=== PATIENT | male | born 1995 | race Caucasian/White ===

== ENCOUNTER → 2020-08-16 08:05 | Outpatient (BNVA) | payer OTHER, SELFPAY | PROVIDERS: Family Provider Nurse Practitioner; Visit Provider Family Medicine Adult Medicine | DX: M79.641 Pain in right hand (principal) | CPT/HCPCS: 73130 ==

== ENCOUNTER 2023-09-09 23:38 | Observation (INO) | payer OTHER, SELFPAY ==
--- NOTE | 2023-09-09 23:44 | ECG_ITS ---
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 [id number]
[2023-09-09 23:46] VITALS: BP 152/111; PULSE 107; RESP 17; TEMP 36.4; O2SAT 100; BMI 24.4
[2023-09-10] VITALS (10 sets, daily range): BP systolic 119–147; BP diastolic 66–91; PULSE 71–118; RESP 14–16; TEMP 36.7; O2SAT 96–98; BMI 24.8
[2023-09-10 00:13] LABS: Basophils % 0.4 %; Eosinophils # 0.2 10^3/uL (0.0-0.8); Eosinophils % 4.6 %; Hematocrit 47.2 % (37-53); Lymphocytes # 2.1 10^3/uL (0.8-4.8); Mean Corpuscular HGB Conc 34.5 g/dL (30-55); Mean Corpuscular Hemoglobin 29.9 pg (27-33); Mean Corpuscular Volume 86.4 fl (82-101); Mean Platelet Volume 10.1 fL (7.4-10.4); Monocytes # 0.6 10^3/uL (0.2-0.9); Monocytes % 11.8 %; Neutrophils # 2.05 10^3/uL (1.8-7.7); Nucleated Red Blood Cells % 0 %; Platelet Count 242 10^3/cmm (157-399); Red Blood Count 5.46 10^6/uL (3.85-5.65); Red Cell Distribution Width 12.1 % (12.1-15.1)
[2023-09-10 00:36] LABS: Alanine Aminotransferase 15 U/L (0-41); Albumin Level 4.4 g/dL (3.5-5.2); Alkaline Phosphatase 61 U/L (40-130); Anion Gap 14.8 (5-19); Aspartate Amino Transferase 18 U/L (0-40); Blood Urea Nitrogen 13 mg/dL (6-20); Calcium 9.6 mg/dL (8.5-10.5); Carbon Dioxide 26 mmol/L (22-29); Chloride 104 mmol/L (98-107); Globulin 3.1 g/dL (1.3-4.6); Glomerular Filtration Rate 99.8 mL/min (90-130); Glucose 103 mg/dL (65-115); Osmolality Calculated 292 mOsm/kg (285-295); Potassium 3.8 mmol/L (3.5-5.1); Sodium 141 mmol/L (136-145); Total Bilirubin 0.5 mg/dL (0.15-1.2); Total Protein 7.5 g/dL (6.6-8.7)
--- NOTE | 2023-09-10 00:55 | W.ED.ARRPALP ---
HPI - Arrhythmia/Palpitations General: Chief Complaint: Arrhythmia/Palpitations Stated Complaint: Heart jumping out of chest sob Time Seen by Provider: 09/09/23 23:46 History of Present Illness: 28-year-old male presents emerged department stating that he started feeling like his heart was beating out of his chest. He states he had a history of atrial fibrillation when he was 15 years old and they told him he would grow out of it not to worry about it. He states he is not taking any medication for this. He states that his heart will intermittently feel like it is beating very fast but over the previous 1 week has continued to worsen. He states tonight when he was laying down in the bed his heart started going extremely fast at which time he checked his pulse and it felt like it was going about 170 or 180. He states he did feel slightly nauseated and short of breath with this episode of feeling like his heart was beating fast. He states he will get intermittently dizzy but was not dizzy tonight. Associated symptoms: Reports nausea Review of Systems General: Reports: 10 or more systems reviewed and unremarkable except in HPI and below Card: Reports: palpitations and irregular heart rhythm GI: Reports: nausea [facility] ED PFSH: Medical History A-fib Surgical History No significant past surgical history Social History Smoking and tobacco/nicotine status: former use of tobacco/nicotine Physical Exam Narrative: EXAM NARRATIVE: Constitutional: the patient appears well nourished and with normal development. Vital signs reviewed as documented. HENMT: Normocephalic, atraumatic. Extermal ears with normal appearance without drainage. Nose without drainage, normal appearance. Mucus membranes moist. Neck is supple, No jugular venous distension, trachea is midline, no appreciable carotid bruits. No lymphadenopathy. No meningeal signs. Flexion, extension and lateral rotation is without pain. Eyes: Pupils are equal, round, reactive to light and accommodation. No scleral icterus. Extra-ocular movement are intact. Thorax is symmetrical and with equal rise and fall with respirations. Resp: Lungs are clear to auscultation. No wheezes, rales, crackles or ronchi at present. Cardio: Irregularly irregular consistent with atrial fibrillation with a ventricular rate of approximately 153.. Positive S1, S2. No appreciable murmurs, rubs or gallops. GI: Abdominal exam reveals normal bowel sounds to all quadrants. No organomegaly. No obvious palpable masses noted. No hepatomegally appreciated. Soft, nontender to palpation. Extremity: Extremities are non-edematous and both femoral and pedal pulses are 2+ and equal bilaterally. Moves all extremities well, sensation in all extremities. Neuro: Alert and oriented x4, person, place, time and situation. Cranial nerves II through XII are grossly intact, there is no focal neurological deficits that I can appreciate at present. Motor strength in the upper and lower extremities are equal and bilateral 5/5. Psych: Cooperative, calm, normal thought process, appropriate judgment. Skin: No lesions, rashes. No gross abnormalities noted. Back: Symmetrical, no obvious deformity, No CVA tenderness Course Vital Signs: Vital signs: Vital Signs Temperature 98.1 F 09/10/23 04:09 Pulse Rate 71 09/10/23 14:32 Respiratory Rate 14 09/10/23 14:32 Blood Pressure 125/85 09/10/23 14:32 Pulse Oximetry 98 09/10/23 14:32 Oxygen Delivery Me thod Room Air 09/10/23 11:13 MDM - Arrhythmia/Palpitations Medical Decision Making Physical exam completed and documented, I will obtain serial cardiac enzymes, serial twelve-lead EKGs, chest x-ray, CBC, CMP, urinalysis, B-type natriuretic peptide, PT/PTT/INR, and a chest x-ray. I provide calcium channel yohan IV push as well as a calcium channel yohan drip-diltiazem. I I have reviewed any pervious and pertinent medical records for assist in obtaining beneficial medical information to improved the care and treatment of the patient. I will contact the hospitalist for admission of the patient and suspect the hospitalist will consult cardiology for additional evaluation treatment and care. Medical Records I reviewed the patient's medical records. Lab Data I reviewed the patient's lab results. 09/09/23 23:59 09/09/23 23:59 Radiology Impressions Chest X-Ray 09/10/23 01:53 IMPRESSION: No acute findings. Laboratory Results WBC 5.00 10^3/uL (3.29-11.43) 12/13/23 23:59 RBC 5.46 10^6/uL (3.85-5.65) 09/09/23 23:59 Hgb 16.30 g/dL (11.27-16.99) 09/09/23 23:59 Hct 47.2 % (37-53) 09/09/23 23:59 MCV 86.4 fl (82-101) 09/09/23 23:59 MCH 29.9 pg (27-33) 09/09/23 23:59 MCHC 34.5 g/dL (30-55) 09/09/23 23:59 RDW 12.1 % (12.1-15.1) 09/09/23 23:59 Plt Count 242 10^3/cmm (157-399) 09/09/23 23:59 MPV 10.1 fL (7.4-10.4) 09/09/23 23:59 Neut % (Auto) 41.0 % 09/09/23 23:59 Lymph % (Auto) 42.0 % 09/09/23 23:59 Wetzel % (Auto) 11.8 % 09/09/23 23:59 Eos % (Auto) 4.6 % 09/09/23 23:59 Baso % (Auto) 0.4 % 09/09/23 23:59 Neut # (Auto) 2.05 10^3/uL (1.8-7.7) 09/09/23 23:59 Lymph # (Auto) 2.1 10^3/uL (0.8-4.8) 09/09/23 23:59 Wetzel # (Auto) 0.6 10^3/uL (0.2-0.9) 09/09/23 23:59 Eos # (Auto) 0.2 10^3/uL (0.0-0.8) 09/09/23 23:59 Baso # (Auto) 0.0 10^3/uL (0.0-0.1) 09/09/23 23:59 Nucleated RBC % (auto) 0 % 09/09/23 23:59 Nucleated RBCs # 0.0 /100WBC 09/09/23 23:59 Sodium 141 mmol/L (136-145) 09/09/23 23:59 Potassium 3.8 mmol/L (3.5-5.1) 09/09/23 23:59 Chloride 104 mmol/L (98-107) 09/09/23 23:59 Carbon Dioxide 26 mmol/L (22-29) 09/09/23 23:59 Anion Gap 14.8 (5-19) 09/09/23 23:59 BUN 13 mg/dL (6-20) 09/09/23 23:59 Creatinine 0.9 mg/dL (0.7-1.2) 09/09/23 23:59 GFR Calculation 99.8 mL/min (90-130) 09/09/23 23:59 Glucose 103 mg/dL (65-115) 09/09/23 23:59 Calculated Osmolality 292 mOsm/kg (285-295) 09/09/23 23:59 Calcium 9.6 mg/dL (8.5-10.5) 09/09/23 23:59 Total Bilirubin 0.5 mg/dL (0.15-1.2) 09/09/23 23:59 AST 18 U/L (0-40) 09/09/23 23:59 ALT 15 U/L (0-41) 09/09/23 23:59 Alkaline Phosphatase 61 U/L (40-130) 09/09/23 23:59 Troponin T Baseline < 6 ng/L (0-15) 09/09/23 00:00 Total Protein 7.5 g/dL (6.6-8.7) 09/09/23 23:59 Albumin 4.4 g/dL (3.5-5.2) 09/09/23 23:59 Globulin 3.1 g/dL (1.3-4.6) 09/09/23 23:59 Urine Opiates Screen Negative ng/mL (Negative) 09/10/23 01:29 Ur Barbiturates Screen Negative ng/mL (Negative) 09/10/23 01:29 Ur Phencyclidine Scrn Negative ng/mL (Negative) 09/10/23 01:29 Ur Amphetamines Screen Negative ng/mL (Negative) 09/10/23 01:29 U Benzodiazepines Scrn Negative ng/mL (Negative) 09/10/23 01:29 Urine Cocaine Screen Negative ng/mL (Negative) 09/10/23 01:29 U Marijuana (THC) Screen Negative ng/mL (Negative) 09/10/23 01:29 All radiology interpretation(s) finalized by discharge Discharge Plan Discharge Patient Disposition: Admitted As Inpatient Admit Provider: Mona Ni Clinical Impression: Atrial fibrillation with rapid ventricular response Condition: Stable Discharge Diet: Usual diet Discharge Activity: Resume usual activity and Increase activity as tolerated Coding Level of Care Code ED Cycle Touring Guide for Tasia Pena
[2023-09-10] MEDS: dilTIAZem 5 mg/mL SDV 5 mL 10 MG IVP (01:02)
[2023-09-10 01:23] LABS: Troponin(5th) Baseline < 6 ng/L (0-15)
[2023-09-10] MEDS: dilTIAZem 100 MG in sodium chloride 0.9% (add-van) 100 ML IV (01:32)
--- NOTE | 2023-09-10 01:53 | XRR_ITS ---
PROCEDURE INFORMATION: Exam: XR Chest Exam date and time: 09/10/2023 1:56 AM Age: 28 years old Clinical indication: Other: Palpitations TECHNIQUE: Imaging protocol: Radiologic exam of the chest. Views: 2 views. COMPARISON: No relevant prior studies available. FINDINGS: Lungs: Unremarkable. No consolidation. Pleural spaces: Unremarkable. No pleural effusion. No pneumothorax. Heart/Mediastinum: Unremarkable. No cardiomegaly. Bones/joints: Unremarkable. XR/XR chest 2V* [id number] IMPRESSION: No acute findings.
[2023-09-10 02:04] LABS: Amphetamines Screen Urine Negative (Negative); Barbiturates Screen Urine Negative (Negative); Benzodiazepines Screen Urine Negative (Negative); Cocaine Screen Urine Negative (Negative); Opiate Screen Urine Negative (Negative); PCP Screen Urine Negative (Negative); THC Screen Urine Negative (Negative)
[2023-09-10 02:52] LABS: Troponin 5 2HR < 6.0 ng/L (0-15); Troponin 5 2HR Delta 0 ABS# (0-10)
--- NOTE | 2023-09-10 03:09 | ECG_ITS ---
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 [id number]
--- NOTE | 2023-09-10 06:04 | P.HP_ITS ---
Providers/Chief Complaint 2 Admitting Physician: Mona Ni MD Chief Complaint: Heart jumping out of chest sob History of Present Illness Clayton Emerson is a 28 year old male presented to hospital with chief complaint of palpitations. Patient is stating that after supper he went to throw some leftover in the garbage, started experiencing racing of heart, normally he breathes out of it at this time atorvastatin persistent, when he laid down in his bed his palpitations were making him uncomfortable that prompted his visit to the ER. Patient is stating that he was sent to the [facility] when he was 15 years old he was in A-fib at that time, he is not sure about the medical term but stating that they told him that his aortic valve was not opening well, he never required cardioversion because as soon as he arrived to the hospital he converted to sinus rhythm. He does not use any AV delmi blocking agent, patient stating that he got clearance to participate in sports as well and he played football. He is not endorsing recent use of marijuana or methamphetamine. 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 He is denying chest pain, shortness of breath, fever. Review of Systems 2 Const: Denies: fever(s) Eyes: Denies: change in vision ENMT: Denies: throat pain Card: Reports: palpitations; Denies: chest pain Resp: Denies: dyspnea GI: Denies: abdominal pain : Denies: flank pain Musc: Denies: neck pain Skin/Breast: Denies: rash Neuro: Denies: headache(s) Psych: Reports: anxiety Endo: Denies: polyuria Medications/Allergies Home Medications Medication Instructions Recorded Confirmed Last Taken Type ibuprofen 200 mg tablet 200 mg PO PRN PRN Headache 09/10/23 09/10/23 Unknown History Allergies Allergy/AdvReac Type Severity Reaction Status Date / Time No Known Allergies Allergy Verified 10/22/20 15:39 PFSH Acute 2 PFSH: Medical History A-fib Surgical History No significant past surgical history Social History Smoking and tobacco/nicotine status: former use of tobacco/nicotine Vitals/I&O/Wt Last Vital Signs Temp 98.1 F 09/10/23 04:09 Pulse 93 09/10/23 05:56 Resp 14 09/10/23 04:09 BP 121/66 09/10/23 04:09 Pulse Ox 96 09/10/23 04:09 O2 Del Method Room Air 09/10/23 02:15 09/09/23 09/09/23 09/10/23 14:59 22:59 06:59 Intake Total 241.417 / 241.417 Balance 241.417 / 241.417 Weight last 48 hrs Weight 85.531 kg Weight 85.531 kg Weight 83.915 kg Physical Exam 2 Narrative: Young male Heart rate fluctuating between 80-1 30, A-fib RVR No active chest pain GCS 15 Nonfocal neuroexam S1, S2 Pleasant cooperative Doing well on room air Data 09/09/23 23:59 09/09/23 23:59 A&P Assessment and plan (1) Atrial fibrillation with rapid ventricular response: Plan Paroxysmal A-fib with RVR [id number] score: 0 Currently on Cardizem drip at 10, I have asked nurse to increase the Cardizem drip rate to 15 Requested TSH, free T4, Drug screen is unremarkable Patient is getting echo at this point He might need cardioversion if he stays in this rhythm Will consult cardiology I will keep patient n.p.o. in case he would require cardioversion later today Will request records from [facility] Full code N.p.o. Chart review: In the ER his potassium was below 4 I requested mag level, hemoglobin A1c is 4.9, D-dimer is remarkable for his age 1 without significant elevation TSH is pending Spoke with Dr. Kirk Self interpretation of EKG: Showing A-fib rhythm Spoke with his mom, she is not sure about the medical term for his aortic valve, she is stating that there was a long time ago, she is not able to recall. Attestations 2 Medical Necessity Statement*: Considering persistent A-fib rhythm patient will need more than 2 midnights for management evaluation, considering his young age he should not be in this rhythm, he will need cardioversion and closer monitoring Diagnoses Atrial fibrillation with rapid ventricular response I48.91
--- NOTE | 2023-09-10 06:06 | USCV_ITS ---
Clayton Emerson Age: 28 Gender: M : 1995 Exam Date: 09/10/2023 06:31 Ordering Phys: Mona Ni MD Technologist: JON Exam Location: [facility] Indication: A FIB BP: 110 / 76 HR: 90 Rhythm: Atrial fibrillation Technical Quality: Adequate MEASUREMENTS (Male / Female) Normal Values 2D ECHO LVOT Diameter 2.0 cm LV Ejection Fraction MOD 2C 67.4 % LV Ejection Fraction 2C AL 69.2 % LA Diameter 2.3 cm LA Width 2.8 cm LA Height 4.0 cm RA Width 3.4 cm RA Height 4.6 cm Aorta at Sinotubular Diameter 2.8 cm IVC Diameter 2.0 cm M-MODE Aortic Annulus Diameter 2.9 cm LA Ao Ratio MM 0.8 MV E Point Septal Separation 0.4 cm DOPPLER AV Peak Velocity 134.0 cm/s LVOT Peak Velocity 95.0 cm/s AV Area Cont Eq vti 2.9 cm squared AV Area Cont Eq pk 2.3 cm squared MV Peak Velocity 99.0 cm/s MV Area PHT 3.2 cm squared MV E' Velocity 51.5 cm/s Mitral E to MV E' Ratio 5.3 Mitral E to LV E' Lateral Ratio 4.5 Mitral E to LV E' Septal Ratio 6.5 TR Peak Velocity 133.2 cm/s TR Peak Gradient 7.1 mmHg TR Mean Velocity 111.1 cm/s TR Mean Gradient 5.0 mmHg TR Velocity Time Integral 25.9 cm TV Peak E Velocity 48.0 cm/s Right Atrial Pressure 3.0 mmHg Pulmonary Artery Systolic Pressu 10.1 mmHg PV Peak Velocity 127.0 cm/s RV Acceleration Time 0.1 s RV Ejection Time 0.3 s RV AcT/ET 0.5 FINDINGS Left Ventricle Normal left ventricular size, systolic function and wall thickness, with no regional wall motion abnormalities. Left ventricular ejection fraction is estimated at 65 %. Rhythm precludes evaluation of diastolic function. Right Ventricle Normal right ventricular size and systolic function. Right ventricular systolic pressure 10.1 mmHg. Right Atrium Normal right atrial size. Left Atrium Normal left atrial size. Mitral Valve Structurally normal mitral valve. No mitral valve stenosis. Trace to mild mitral valve regurgitation. Aortic Valve Structurally normal trileaflet aortic valve. No aortic valve stenosis. No aortic valve regurgitation. Tricuspid Valve Structurally normal tricuspid valve. No tricuspid valve stenosis. Trace tricuspid valve regurgitation. Pulmonic Valve Structurally normal pulmonic valve. No pulmonary valve stenosis. Trace pulmonary valve regurgitation. Pericardium No pericardial effusion. Aorta Normal size aortic root and proximal ascending aorta. IVC Normal IVC dimension with >50% respiratory change of the inferior vena cava. CONCLUSIONS 1. Normal left ventricular size, systolic function and wall thickness, with no regional wall motion abnormalities. Left ventricular ejection fraction is estimated at 65 %. 2. Trace to mild mitral valve regurgitation. 3. Normal pulmonary artery pressure. 4. No prior similar studies to compare. Jen Rascon MD (Electronically Signed) Final Date: 10 September 2023 12:35 S
[2023-09-10 06:27] LABS: D Dimer <= 0.27 ug/mLFEU (0-0.59)
[2023-09-10 06:35] LABS: Estmated Average Glucose 94; Hemoglobin A1C 4.9 % (4.0-6.0)
--- NOTE | 2023-09-10 06:51 | PC.NURSE ---
Dr Ni requested cardizem gtt be turned up to 15.
[2023-09-10 06:54] LABS: Free T4 Free Thyroxine 1.33 ng/dL (0.82-1.77); Thyroid Stimulating Hormone 1.02 uIU/mL (0.27-4.20)
[2023-09-10] MEDS: potassium chloride ER 20 mEq Tablet 40 MEQ PO (06:56)
[2023-09-10 06:59] LABS: Troponin 5 6HR < 6.0 ng/L (0-15); Troponin 5 6HR Delta 0 ng/L (0-12)
--- NOTE | 2023-09-10 08:08 | P.CONIM_ITS ---
Providers/Reason For Consult 2 Consulting Physician/Specialty*: Cardiovascular medicine Reason for Consult*: Atrial fibrillation Requesting Physician: Hospitalist Attending Physician: Mona Ni MD History of Present Illness History of Present Illness Clayton Emerson is a 28 year old male with no known cardiac history. He says that he was 15 years old and had an episode of atrial fibrillation. He went to [place] but apparently converted on his own. He does not remember much about this. He also states that he had something wrong with one of his valves. He has never had a cardioversion, never been on any medication and has never had any cardiac surgery. When he was 15 they cleared him to play sports which he played throughout his high school days. He has not had any other trouble. Last night after dinner he went to take something to the garbage. He noticed an irregular fast heartbeat. He tried to take deep breaths and do other things to make it go away which it would not. He then laid down to go to bed and noticed that it was still irregular so he came into the emergency room. He was in atrial fibrillation with a rapid ventricular response. He has been placed on Cardizem which has reduced his heart rate down into the high 90s and low 100s. He is otherwise well. He takes no medications. He denies the use of any illicit substances. 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 Review of Systems 2 Narrative: Review of systems is negative Medications/Allergies Home Medications Medication Instructions Recorded Confirmed Last Taken Type ibuprofen 200 mg tablet 200 mg PO PRN PRN Headache 09/10/23 09/10/23 Unknown History Allergies Allergy/AdvReac Type Severity Reaction Status Date / Time No Known Allergies Allergy Verified 10/22/20 15:39 Current Medications Generic Name Dose Route Start Last Admin Trade Name Freq PRN Reason Stop Dose Admin Diltiazem HCl 100 mg/ Sodium 100 mls @ 0 mls/hr 09/10/23 01:00 09/10/23 06:57 Chloride IV 15 mg/hr .Q0M JACQUELINE 15 mls/hr Titration Protocol Per Protocol PFSH Acute 2 PFSH: Medical History A-fib Surgical History No significant past surgical history Social History Smoking and tobacco/nicotine status: former use of tobacco/nicotine Vitals/I&O/Wt Last Vital Signs Temp 98.1 F 09/10/23 04:09 Pulse 102 H 09/10/23 07:21 Resp 16 09/10/23 07:21 BP 119/71 09/10/23 07:21 Pulse Ox 97 09/10/23 07:21 O2 Del Method Room Air 09/10/23 07:21 09/09/23 09/10/23 09/10/23 22:59 06:59 14:59 Intake Total 292.750 / 292.750 Balance 292.750 / 292.750 Weight last 48 hrs Weight 188 lb 9 oz Weight 188 lb 9 oz Weight 185 lb Physical Exam 2 Narrative: GENERAL: In general he is comfortable HEENT: Exam within normal limits. NECK: Supple without jugular vein distention. The carotid upstroke is normal without bruits. BACK: Exam normal. LUNGS: Clear. HEART: Irregular rate and rhythm ABDOMEN: Benign without organomegaly or tenderness. EXTREMITIES: No edema. NEUROLOGIC: Exam normal. SKIN: Unremarkable. Data 09/09/23 23:59 09/09/23 23:59 A&P Assessment and plan (1) Atrial fibrillation with rapid ventricular response: Plan Apparently an echo is pending. I will give him 450 mg of Rythmol to see if that we will convert him. If it does not he should be cardioverted sooner rather than later. He has been in atrial fibrillation about 12 hours so we still have time before we need to anticoagulate him. and Low Time for a total of Total time in patient care (in minutes): 30 minutes, includes reviewing past or interval history, examining/interviewing patient, placing orders, counseling patient/family/other support, updating patient/family/other support, discussing plan of care with staff, documenting encounter and coordinating care Diagnoses Atrial fibrillation with rapid ventricular response I48.91
[2023-09-10] MEDS: metoprolol tartrate 25 mg Tablet 12.5 MG PO (09:02)
--- NOTE | 2023-09-10 09:46 | P.DS_ITS ---
Discharge Providers Date of Admission: 09/10/23 01:53 Date of Discharge: September 10, 2023 Attending Provider at Admission: Mona Ni MD Attending Provider at Discharge: Orville Ramirez MD Consults: Cardiology: Dr. Kirk Diagnoses at Discharge Discharge Diagnosis (1) Atrial fibrillation with rapid ventricular response: Status: Acute Reason for Visit Reason for Visit: Heart jumping out of chest sob Hospital Course Hospital Course Clayton Emerson is a 28 year old male with no known cardiac history. He says that he was 15 years old and had an episode of atrial fibrillation. He went to [facility] but apparently converted on his own. He does not remember much about this. He also states that he had something wrong with one of his valves. He has never had a cardioversion, never been on any medication and has never had any cardiac surgery. When he was 15 they cleared him to play sports which he played throughout his high school days. He has not had any other trouble. Last night after dinner he went to take something to the garbage. He noticed an irregular fast heartbeat. He tried to take deep breaths and do other things to make it go away which it would not. He then laid down to go to bed and noticed that it was still irregular so he came into the emergency room. He was in atrial fibrillation with a rapid ventricular response. He has been placed on Cardizem which has reduced his heart rate down into the high 90s and low 100s. He is otherwise well. He takes no medications. He denies the use of any illicit substances. 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 Cardiology was consulted. Patient was to be given propafenone. Shortly before getting propafenone, the patient had a bowel movement, beared down and converted to sinus rhythm on his own. Patient remained in sinus rhythm both at rest and ambulation after the event. Echocardiogram was done which showed a normal EF of 65%, trace to mild MR, normal PA pressures. He has been discharged hemodynamic stable condition on oral low-dose metoprolol and baby aspirin. He is to follow-up with cardiology within next 1 month. New appointment has been made with the PCP. Physical Exam Narrative: General: No acute distress, AO x3 HEENT: PERRLA, pupils bilaterally equal and reactive Chest: Normal vesicular breath sounds, no added sounds, equal good air entry bilaterally CVS: S1-S2 regular, no murmurs, no tachycardia, no gallops, no rubs Abdomen: Soft, nontender, no organomegaly, bowel sounds present Neuro: No focal deficits, no facial deformity, AO x3, power 5/5 in all limbs Discharge Data Studies Completed and Pending Completed Studies During Hospitalization Category Date Time Status XR chest 2V* [id number] Stat Exams 09/10/23 01:53 Completed Pending at discharge Category Date Time Status Complete Blood Count w/Auto AM LABS Lab 09/11/23 04:00 Ordered Comprehensive Metabolic Panel AM LABS Lab 09/11/23 04:00 Ordered Magnesium AM LABS Lab 09/11/23 04:00 Ordered PHOS [Phosphorus] AM LABS Lab 09/11/23 04:00 Ordered CV. echo complete* [id number] Routine Ultrasound 09/10/23 06:06 Taken Radiology Impressions Chest X-Ray 09/10/23 01:53 IMPRESSION: No acute findings. Echocardiogram: CONCLUSIONS 1. Normal left ventricular size, systolic function and wall thickness, with no regional wall motion abnormalities. Left ventricular ejection fraction is estimated at 65 %. 2. Trace to mild mitral valve regurgitation. 3. Normal pulmonary artery pressure. 4. No prior similar studies to compare. Jen Rascon MD (Electronically Signed) Final Date: 10 September 2023 Laboratory Results WBC 5.00 10^3/uL (3.29-11.43) 09/09/23 23:59 RBC 5.46 10^6/uL (3.85-5.65) 09/09/23 23:59 Hgb 16.30 g/dL (11.27-16.99) 09/09/23 23:59 Hct 47.2 % (37-53) 09/09/23 23:59 MCV 86.4 fl (82-101) 09/09/23 23:59 MCH 29.9 pg (27-33) 09/09/23 23:59 MCHC 34.5 g/dL (30-55) 09/09/23 23:59 RDW 12.1 % (12.1-15.1) 09/09/23 23:59 Plt Count 242 10^3/cmm (157-399) 09/09/23 23:59 MPV 10.1 fL (7.4-10.4) 09/09/23 23:59 Neut % (Auto) 41.0 % 09/09/23 23:59 Lymph % (Auto) 42.0 % 09/09/23 23:59 Dodge % (Auto) 11.8 % 09/09/23 23:59 Eos % (Auto) 4.6 % 09/09/23 23:59 Baso % (Auto) 0.4 % 09/09/23 23:59 Neut # (Auto) 2.05 10^3/uL (1.8-7.7) 09/09/23 23:59 Lymph # (Auto) 2.1 10^3/uL (0.8-4.8) 09/09/23 23:59 Dodge # (Auto) 0.6 10^3/uL (0.2-0.9) 09/09/23 23:59 Eos # (Auto) 0.2 10^3/uL (0.0-0.8) 09/09/23 23:59 Baso # (Auto) 0.0 10^3/uL (0.0-0.1) 09/09/23 23:59 Nucleated RBC % (auto) 0 % 09/09/23 23:59 Nucleated RBCs # 0.0 /100WBC 09/09/23 23:59 D-Dimer <= 0.27 ug/mLFEU (0-0.59) 09/10/23 05:56 Sodium 141 mmol/L (136-145) 09/09/23 23:59 Potassium 3.8 mmol/L (3.5-5.1) 09/09/23 23:59 Chloride 104 mmol/L (98-107) 09/09/23 23:59 Carbon Dioxide 26 mmol/L (22-29) 09/09/23 23:59 Anion Gap 14.8 (5-19) 09/09/23 23:59 BUN 13 mg/dL (6-20) 09/09/23 23:59 Creatinine 0.9 mg/dL (0.7-1.2) 09/09/23 23:59 GFR Calculation 99.8 mL/min (90-130) 09/09/23 23:59 Glucose 103 mg/dL (65-115) 09/09/23 23:59 Estimat Average Glucose 94 09/10/23 05:56 Hemoglobin A1c 4.9 % (4.0-6.0) 09/10/23 05:56 Calculated Osmolality 292 mOsm/kg (285-295) 09/09/23 23:59 Calcium 9.6 mg/dL (8.5-10.5) 09/09/23 23:59 Total Bilirubin 0.5 mg/dL (0.15-1.2) 09/09/23 23:59 AST 18 U/L (0-40) 09/09/23 23:59 ALT 15 U/L (0-41) 09/09/23 23:59 Alkaline Phosphatase 61 U/L (40-130) 09/09/23 23:59 Troponin T Baseline < 6 ng/L (0-15) 09/09/23 00:00 Troponin T 120 Minute < 6.0 ng/L (0-15) 09/10/23 02:20 Delta Troponin T 0 ABS# (0-10) 09/10/23 02:20 Troponin T Hi Sens 6Hr < 6.0 ng/L (0-15) 09/10/23 05:56 Troponin T Hi Sens 6Hr Delta 0 ng/L (0-12) 09/10/23 05:56 Total Protein 7.5 g/dL (6.6-8.7) 09/09/23 23:59 Albumin 4.4 g/dL (3.5-5.2) 09/09/23 23:59 Globulin 3.1 g/dL (1.3-4.6) 09/09/23 23:59 TSH 1.02 uIU/mL (0.27-4.20) 09/10/23 05:56 Free T4 1.33 ng/dL (0.82-1.77) 09/10/23 05:56 Urine Opiates Screen Negative ng/mL (Negative) 09/10/23 01:29 Ur Barbiturates Screen Negative ng/mL (Negative) 09/10/23 01:29 Ur Phencyclidine Scrn Negative ng/mL (Negative) 09/10/23 01:29 Ur Amphetamines Screen Negative ng/mL (Negative) 09/10/23 01:29 U Benzodiazepines Scrn Negative ng/mL (Negative) 09/10/23 01:29 Urine Cocaine Screen Negative ng/mL (Negative) 09/10/23 01:29 U Marijuana (THC) Screen Negative ng/mL (Negative) 09/10/23 01:29 Vitals Last Vital Signs Temp 98.1 F 09/10/23 04:09 Pulse 78 09/10/23 08:42 Resp 16 09/10/23 08:42 BP 119/71 09/10/23 07:21 Pulse Ox 98 09/10/23 08:42 O2 Del Method Room Air 09/10/23 08:42 Discharge Plan Discharge Patient Disposition: Home Condition: Stable Prescriptions: New metoprolol tartrate 25 mg Tablet 12.5 mg PO BID 30 Days Qty: 30 0RF aspirin 81 mg capsule 81 mg PO DAILY Qty: 30 0RF Continued ibuprofen 200 mg Tablet 200 mg PO PRN PRN (Reason: Headache) Discharge Orders: Discharge Order (Routine); Ordered 09/10/23 Ordered By: Orville Ramirez Referrals: Derrek Maacrio MD [Physician] - 4-7 days (To establish care with Dr. Derrek Macario, Please call [phone] to discuss getting set up and established. Thank you.) Xenia Menendez FNP [Nurse Practitioner] - 09/17/23 9:30 am Discharge Diet: Usual diet Discharge Activity: Resume usual activity and Increase activity as tolerated Patient Instructions: Metoprolol (By mouth) (Lopressor, Toprol XL), Aspirin (By mouth) (Srini Extra Strength, Srini Aspirin Children[facility],..., A-fib (Atrial Fibrillation) (DC), Opioid Safety Discharge Attestations Time Spent in Discharge Care*: greater than 30 min Specific Discharge Activities: educating patient, educating and/or supporting family/caregiver, discussing with pcp/other providers, discussing with case consultant/social workers/dc planners, documenting/other paperwork and evaluating patient/reviewing data Status at Discharge: Cognitive status at discharge: cognitively intact , Behavioral status at discharge: cooperative , Functional status at discharge: independent ambulation , Overall status at discharge: patient is back to baseline Quality Metrics Clinical Quality Measures [ No reported AMI, CVA or VTE this stay] Coding Level of Care Code 85810 Total time (in minutes) for Discharge: 60 Diagnoses Atrial fibrillation with rapid ventricular response I48.91
--- NOTE | 2023-09-10 10:39 | PC.NURSE ---
0896 Pt converted to sr after he uses bathroom. pt denies any sob or chest pain. he said, he feels much better when he feels like his heart rhythm is back to normal. dr lugo was notified of the conversion and verbal order received to not give the ordered rhythmol once time as ordered.
--- NOTE | 2023-09-10 12:31 | PC.NURSE ---
ambulating down hallways pt remains in SR HR-70s to upper 80s.
--- NOTE | 2023-09-10 15:32 | PC.NURSE ---
new rx called to [facility] called pt hru phone and let him know that it is ready.
== END 2023-09-10 15:05 | disposition home or self-care (01) ==
LOC: ER 09-10 01:53 → CSU 09-10 08:12
PROVIDERS: Nurse Practitioner Family; Admitting Provider Internal Medicine; Emergency Provider Internal Medicine; Visit Provider Student in an Organized Health Care Education/Training Program
DX: I48.91 Unspecified atrial fibrillation (principal); Z87.891 Personal history of nicotine dependence
CPT/HCPCS: 36415; 71046; 80053; 80306; 83036; 84439; 84443; 84484; 85025; 85378; 93005; 93306; 96365; 96375; 96376; 99285; G0378; J3490